=== PATIENT | male | born 1985 | race Caucasian/White ===

== ENCOUNTER 2016-08-21 11:20 | Emergency (ER) | payer OTHER ==
[2016-08-21] MEDS ORDERED: Diphtheria,Pertussis(Acell),Tetanus Vaccine 0.5 ML SDV IM ONE (11:41)
--- NOTE | 2016-08-21 11:47 | EDM.PDOC ---
ED HPI HEAD INJURY - General Chief Complaint: Laceration Stated Complaint: HEAD LACERATION Time Seen by Provider: 08/21/16 11:20 Source of Information: Reports: Patient History Limitations: Reports: No limitations - History of Present Illness INITIAL COMMENTS - FREE TEXT/NARRATIVE: PT STATES HE ACCIDENTALLY STRUCK HEAD ON WOODEN SHELF. SUSTAINED LACERATION TO SCALP. DENIES MATHEW, N/V, NECK PAIN, LOC, OR BLURRY VISION Symptom Onset Date: 08/21/16 Symptom Onset Time: 10:45 Timing/Duration: Reports: Minutes: Location: Reports: parietal Quality: Reports: ache Severity: mild Place of Occurrence: work Improves with: none Worsens with: none Context: Reports: direct blow Associated Symptoms: Reports: no other symptoms. Denies: headache, nausea/ vomiting, loss of consciousness, dizziness, confused ED ROS GENERAL - Review of Systems Review Of Systems: ROS reveals no pertinent complaints other than HPI. Constitutional: Reports: no symptoms HEENT: Reports: No symptoms Respiratory: Reports: no symptoms Cardiovascular: Reports: No symptoms Endocrine: Reports: no symptoms GI/Abdominal: Reports: No symptoms : Reports: no symptoms Musculoskeletal: Reports: no symptoms Skin: Reports: wound (SCALP LACERATION) Neurological: Reports: no symptoms Psychiatric: Reports: No symptoms Hematologic/Lymphatic: Reports: no symptoms Immunologic: Reports: no symptoms ED EXAM, HEAD INJURY - Physical Exam Exam: See Below Exam Limited By: No limitations General Appearance: alert, WD/WN, no apparent distress Head: scalp lacerations, scalp tenderness. No: scalp swelling, scalp ecchymosis , scalp hematoma, Barker's Sign, raccoon eyes Nexus Criteria: No: posterior, midline cervical tenderness, evidence of intoxication, altered level of consciousness, focal neurological deficit, painful distracting injuries Eyes: bilateral eye: normal inspection Ears: normal external exam, normal canal Nose: normal inspection, no blood Throat/Mouth: Normal inspection, Normal oropharynx, No airway compromise Neck: non-tender, full range of motion, normal alignment, normal inspection Respiratory: no respiratory distress Back Exam: normal inspection, full range of motion Extremities: no evidence of injury Neurologic: director of scientific research II-XII nml as tested, no motor/sensory deficits, alert, normal mood/affect, oriented x 3 Skin: Normal color, Warm/dry - Bradford Coma Score Bradford Total: 15 ED LACERATION/WOUND & PATEL PROC - Laceration/Wound Repair Midline [place] Head Appearance: superficial Distal NVT: neuro & vascular intact Skin prep: providone-iodine (betadine) Closed with: angelina (3) Course - Vital Signs Last Recorded V/S: Last Vital Signs Temp 97.2 F 08/21/16 11:40 Pulse 62 08/21/16 11:40 Resp 18 08/21/16 11:40 BP 104/41 L 08/21/16 11:40 Pulse Ox 98 08/21/16 11:40 - Orders/Labs/Meds Orders: Active Orders 24 hr Category Date Time Status Vaccines to be Administered [RC] PER UNIT ROUTINE Care 08/21/16 11:41 Ordered Diphth,Pertuss(Acell),Tet Vac [Adacel] Med 08/21/16 11:41 Once 0.5 ml IM .ONCE ONE Meds: Medications Discontinued Medications Generic Name Dose Route Start Last Admin Trade Name Freq PRN Reason Stop Dose Admin Diphtheria/Tetanus/Acell Pertussis 0.5 ml 08/21/16 11:41 Adacel IM 08/21/16 11:42 .ONCE ONE - Re-Assessments/Exams Free Text/Narrative Re-Assessment/Exam: 08/21/16 11:48 PT AFEBRILE, NONTOXIC APPEARING, TOLERATED PROCEDURE WELL. TD GIVEN. 3 ANGELINA PLACED. REMOVE IN 10 DAYS 08/21/16 11:52 Departure - Departure Time of Disposition: 11:52 Disposition: Home, Self-Care 01 Condition: good Clinical Impression: Scalp laceration Qualifiers: Encounter type: initial encounter Qualified Code(s): S01.01XA - Laceration without foreign body of scalp, initial encounter Instructions: Stitches, Angelina, or Adhesive Wound Closure, [id number], Laceration Care, Adult, Ycki-li-Goug, Head Injury, Adult, [id number] Additional Instructions: FOLLOW UP WITH PCP OR RETURN TO ER IN 10 DAYS FOR SUTURE REMOVAL. RETURN TO ER SOONER IF SYMPTOMS DEVELOP - My Orders Last 24 Hours: My Active Orders 08/21/16 11:41 Vaccines to be Administered [RC] PER UNIT ROUTINE Diphth,Pertuss(Acell),Tet Vac [Adacel] 0.5 ml IM .ONCE ONE - Assessment/Plan Last 24 Hours: My Active Orders 08/21/16 11:41 Vaccines to be Administered [RC] PER UNIT ROUTINE Diphth,Pertuss(Acell),Tet Vac [Adacel] 0.5 ml IM .ONCE ONE
[2016-08-21 12:03] VITALS: BP 118/51
== END 2016-08-21 12:10 | disposition home or self-care (01) ==
LOC: KA.ED 11:20
DX: S01.01XA Laceration without foreign body of scalp, initial encounter (principal); W22.8XXA Striking against or struck by other objects, initial encounter; Z23 Encounter for immunization
CPT/HCPCS: 12001; 90471; 90715; 99283